=== PATIENT | male | born 1990 | race Caucasian/White ===

== ENCOUNTER 2016-10-24 07:38 | Emergency (ER) | payer BC ==
[2016-10-24 07:47] VITALS: BP 137/92
--- NOTE | 2016-10-24 08:15 | UC ---
Respiratory Complaint HPI - HPI Summary HPI Summary: 2 DAYS OF COUGH, CONGESTION, GONZALES. ST WHENHE COUGHS. FEVER YESTERDAY 102. LAST DOSE IBUPROFEN 12 HOURS AGO. NO N/V/D. - History of Current Complaint Chief Complaint: UCRespiratory Stated Complaint: COUGH Time Seen by Provider: 10/24/16 08:09 Hx Obtained From: Patient Onset/Duration: Gradual Onset, Lasting Days, Still Present Timing: Constant Severity Initially: Moderate Severity Currently: Moderate Pain Intensity: 0 Pain Scale Used: 0-10 Numeric Character: Cough: Nonproductive Aggravating Factors: Nothing Alleviating Factors: Nothing Associated Signs And Symptoms: Positive: Fever, URI, Nasal Congestion. Negative : Dyspnea, Pleuritic Chest Pain, Wheezing, Hemoptysis, Hoarseness - Allergies/Home Medications Allergies/Adverse Reactions: Allergies Allergy/AdvReac Type Severity Reaction Status Date / Time No Known Allergies Allergy Verified 10/24/16 07:41 PMH/Surg Hx/FS Hx/Imm Hx Previously Healthy: Yes - Surgical History Surgical History: Yes Surgery Procedure, Year, and Place: [place] teeth removal 2015 - Family History Known Family History: Positive: Hypertension - Social History Alcohol Use: Weekly Substance Use Type: None Smoking Status (MU): Never Smoked Tobacco - Immunization History Most Recent Influenza Vaccination: 2015/2016 Review of Systems Constitutional: Fever ENT: Sore Throat, Nasal Discharge Respiratory: Cough Cardiovascular: Negative Gastrointestinal: Negative All Other Systems Reviewed And Are Negative: Yes Physical Exam Triage Information Reviewed: Yes Appearance: Well-Appearing, No Pain Distress, Well-Nourished Vital Signs: Initial Vital Signs Temp 99.4 F 10/24/16 07:42 Pulse 100 10/24/16 07:42 Resp 18 10/24/16 07:42 BP 137/92 10/24/16 07:42 Pulse Ox 97 10/24/16 07:42 Vital Signs Reviewed: Yes Eyes: Positive: Conjunctiva Clear ENT: Positive: Hearing grossly normal, Pharynx normal, TMs normal Neck: Positive: Supple, Nontender, No Lymphadenopathy Respiratory Exam: Normal Cardiovascular Exam: Normal Abdomen Description: Positive: Soft Musculoskeletal: Positive: No Edema Neurological: Positive: Alert Psychological: Positive: Age Appropriate Behavior Skin: Negative: rashes UC Diagnostic Evaluation - Laboratory O2 Sat by Pulse Oximetry: 97 Respiratory Course/Dx - Differential Dx/Diagnosis Provider Diagnoses: ACUATE BRONCHITIS - LIKELY VIRAL Discharge - Discharge Plan Condition: Stable Disposition: HOME Prescriptions: guaiFENesin/CODIEN 100MG-10MG* [Robitussin AC 100Mg-10Mg*] 5 - 10 ml PO Q6H PRN #150 ml MDD 40ML PRN Reason: Cough Patient Education Materials: Acute Bronchitis (ED) Referrals: Bk Barker MD [Primary Care Provider] - Additional Instructions: YOU HAVE INFLAMMATION OF YOUR AIRWAYS (BRONCHITIS). THIS IS VERY LIKELY VIRALLY MEDIATED AND ANTIBIOTICS ARE UNLIKELY TO EXPEDITE YOUR RECOVERY. REST, HYDRATE, OTC MEDS NEEDED. SEEK FOLLOW-UP IF YOU ARE NOT IMPROVING EXPECTED OVER THE NEXT WEEK OR SO. CALL THE NUMBER BELOW FOR ASSISTANCE IN ESTABLISHING WITH A PCP An additional resource available to assist in finding the appropriate physician for your health care needs is the [facility] ([facility]). You may contact them by calling [phone].
== END 2016-10-24 08:24 | disposition home or self-care (01) ==
LOC: UCEAST 07:38
DX: J20.9 Acute bronchitis, unspecified (principal)
CPT/HCPCS: 99212; G0463

== ENCOUNTER 2017-07-01 15:52 | Emergency (ER) | payer SELFPAY ==
[2017-07-01 16:14] VITALS: BP 149/81
--- NOTE | 2017-07-01 16:21 | UC ---
Lower Extremity/Ankle HPI - HPI Summary HPI Summary: 26 YEAR OLD MALE PRESENTS WITH RIGHT BIG TOE PAIN SECONDARY TO CRUSH INJURY. - History of Current Complaint Chief Complaint: UCLowerExtremity Stated Complaint: FOOT INJURY Time Seen by Provider: 07/01/17 16:20 Hx Obtained From: Patient Onset/Duration: Sudden Onset Severity Initially: Moderate Severity Currently: Moderate Pain Scale Used: 0-10 Numeric - 8 Aggravating Factor(s): Standing Alleviating Factor(s): Rest - Allergies/Home Medications Allergies/Adverse Reactions: Allergies Allergy/AdvReac Type Severity Reaction Status Date / Time No Known Allergies Allergy Verified 07/01/17 16:14 PMH/Surg Hx/FS Hx/Imm Hx Previously Healthy: Yes - Surgical History Surgical History: Yes Surgery Procedure, Year, and Place: [place] teeth removal 2015 - Family History Known Family History: Positive: Hypertension - Social History Alcohol Use: Occasionally Substance Use Type: None Smoking Status (MU): Never Smoked Tobacco - Immunization History Most Recent Influenza Vaccination: Review of Systems Constitutional: Negative Skin: Negative Eyes: Negative ENT: Negative Respiratory: Negative Cardiovascular: Negative Gastrointestinal: Negative Genitourinary: Negative Motor: Negative Neurovascular: Negative Musculoskeletal: Negative Neurological: Negative Psychological: Negative All Other Systems Reviewed And Are Negative: Yes Physical Exam Triage Information Reviewed: Yes Vital Signs: Initial Vital Signs Temp 36.4 C 07/01/17 16:12 Pulse 87 07/01/17 16:12 Resp 12 07/01/17 16:12 BP 149/81 07/01/17 16:12 Pulse Ox 97 07/01/17 16:12 Vital Signs Reviewed: Yes Eye Exam: Normal ENT Exam: Normal Dental Exam: Normal Neck exam: Normal Neck: Positive: 1 Respiratory Exam: Normal Cardiovascular Exam: Normal Abdominal Exam: Normal Musculoskeletal Exam: Normal Neurological Exam: Normal Psychological Exam: Normal Skin Exam: Normal Lower Extremity Course/Dx - Differential Dx/Diagnosis Provider Diagnoses: RIGHT BIG TOE FRACTURE Discharge - Discharge Plan Condition: Stable Disposition: HOME Prescriptions: Acetaminop/Codeine 30 MG TAB* [Tylenol/Codeine 30 MG TAB*] 1 tab PO Q8H PRN #9 tab MDD 3 PRN Reason: Pain Ibuprofen TAB* [Motrin TAB* 800 MG] 800 mg PO Q6H PRN #30 tab PRN Reason: Pain Patient Education Materials: Toe Fracture (ED) Referrals: Bk Barker MD [Medical Doctor] - Lennox Barrett MD [Medical Doctor] -
--- NOTE | 2017-07-01 16:45 | RAD ---
Indication: Crush injury to RIGHT foot; pain at the metatarsal phalangeal joint and distal first phalanx. Comparison: No relevant prior exams available on the [facility] PACS for comparison. Technique: AP, lateral, and oblique views RIGHT foot. Report: Nondisplaced intra-articular fracture medial base of the first distal phalanx. No additional fracture evident. Normal variant bipartite sesamoid at the medial head of the flexor hallucis brevis. Normal articular alignment and preserved joint spaces. Soft tissue swelling along the medial aspect of the foot from the mid foot through the tip of the great toe. IMPRESSION: Nondisplaced intra-articular fracture medial base first distal phalanx.
== END 2017-07-01 17:10 | disposition home or self-care (01) ==
LOC: UCEAST 15:52
DX: S92.401A Displaced unspecified fracture of right great toe, initial encounter for closed fracture (principal); W20.8XXA Other cause of strike by thrown, projected or falling object, initial encounter
CPT/HCPCS: 99212; G0463

== ENCOUNTER 2018-01-03 15:58 | Emergency (ER) | payer BC ==
[2018-01-03 16:14] VITALS: BP 122/78
--- NOTE | 2018-01-03 16:27 | UC ---
Throat Pain/Nasal Elliot HPI - HPI Summary HPI Summary: Sensation of pain/soreness in lower throat on inspiration only starting about 3 days ago. Denies SOB, choking, wheezing, or pain with swallowing. No fever or runny nose. Has never had a symptom like this before. Does get very occasional heartburn, but no symptoms recently. - History of Current Complaint Chief Complaint: UCRespiratory Stated Complaint: PAIN IN THROAT W/ INHALATION Time Seen by Provider: 01/03/18 16:09 Hx Obtained From: Patient Onset/Duration: Gradual Onset, Lasting Days Severity: Mild Pain Intensity: 4 Cough: Other: - dry, occasional Associated Signs & Symptoms: Negative: Dysphagia, Sinus Discomfort, Nasal Discharge - Allergies/Home Medications Allergies/Adverse Reactions: Allergies Allergy/AdvReac Type Severity Reaction Status Date / Time No Known Allergies Allergy Verified 01/03/18 16:07 Home Medications: Home Medications Guaifenesin/Pseudoephedrne HCl [Mucinex D ER Tablet] 1 each PO Q8HR 01/03/18 [ History Confirmed 01/03/18] PMH/Surg Hx/FS Hx/Imm Hx Previously Healthy: Yes - Surgical History Surgical History: Yes Surgery Procedure, Year, and Place: [place] teeth removal 2015 - Family History Known Family History: Positive: Hypertension - Social History Occupation: Employed Full-time Lives: With Family Alcohol Use: Weekly Substance Use Type: None Smoking Status (MU): Never Smoked Tobacco - Immunization History Most Recent Influenza Vaccination: 2015/2016 Review of Systems Constitutional: Negative Skin: Negative Eyes: Negative ENT: Sore Throat Respiratory: Negative Cardiovascular: Negative Gastrointestinal: Negative Genitourinary: Negative Motor: Negative Neurovascular: Negative Musculoskeletal: Negative Neurological: Negative Psychological: Negative Is Patient Immunocompromised?: No All Other Systems Reviewed And Are Negative: Yes Physical Exam Triage Information Reviewed: Yes Appearance: Well-Appearing, No Pain Distress, Well-Nourished Vital Signs: Initial Vital Signs Temp 98.0 F 01/03/18 16:06 Pulse 90 01/03/18 16:06 Resp 18 01/03/18 16:06 BP 122/78 01/03/18 16:06 Pulse Ox 98 01/03/18 16:06 Vital Signs Reviewed: Yes Eye Exam: Normal Eyes: Positive: Conjunctiva Clear ENT Exam: Normal ENT: Positive: Normal ENT inspection, Hearing grossly normal, Pharynx normal, TMs normal, Uvula midline, Other - no swelling noted in oropharynx Dental Exam: Normal Neck exam: Other - notes discomfort near thyroid Neck: Positive: Supple, Nontender Respiratory Exam: Normal Respiratory: Positive: Chest non-tender, Lungs clear, Normal breath sounds, No respiratory distress, No accessory muscle use Cardiovascular: Positive: No Murmur, Other: - rhythm highly irregular Musculoskeletal Exam: Normal Musculoskeletal: Positive: Strength Intact, ROM Intact Neurological: Positive: Alert, Muscle Tone Normal Psychological Exam: Normal Skin Exam: Normal Diagnostics - EKG Cardiac Rate: Other Rate - Irregular from 50s - 120s Cardiac Rhythm: AFib: New Throat Pain/Nasal Course/Dx - Differential Dx/Diagnosis Provider Diagnoses: atrial fibrillation - Physician Notification/Consults Discussed Patient Care With: Jackson Maurice Time Discussed With Above Provider: 16:40 Instructed by Provider To: MD Will See In ED Discharge - Sign-Out/Discharge Documenting (check all that apply): Discharge - Discharge Plan Condition: Stable Disposition: TRANS HIGHER LVL OF CARE FAC Referrals: No Primary Care Phys,NOPCP [Primary Care Provider] - - Billing Disposition and Condition Condition: STABLE Disposition: EMTALA
== END 2018-01-03 16:54 | disposition short-term general hospital (02) ==
LOC: UCEAST 15:58
DX: I48.91 Unspecified atrial fibrillation (principal)
CPT/HCPCS: 93005; 99213; G0463

== ENCOUNTER 2018-01-03 17:05 | Observation (INO) | payer BC ==
[2018-01-03] MEDS ORDERED: NS 0.9% 1000 ML* 1,000 ML IV ONE ×2 (17:13→18:16)
[2018-01-03] MEDS ORDERED: Diltiazem IV* 5 MG/ML 5 ML VIAL (for loading dose/IV Push) (25 MG) IV SLOW PU ONE (17:14)
[2018-01-03] MEDS ORDERED: Diltiazem IV VIAL* 125 MG/25 ML VIAL ONE (17:18)
[2018-01-03] MEDS ORDERED: Diltiazem DRIP* 100 MG/100 ML ADDV.BAG IVPB ONE (17:21)
[2018-01-03 17:29] LABS: Hematocrit 47 % (42-52); Hemoglobin 16.3 g/dl (14.0-18.0); Mean Corpuscular HGB Conc 35 g/dl (31-36); Mean Corpuscular Hemoglobin 29 pg (27-31); Mean Corpuscular Volume 82 fL (80-94); Mean Platelet Volume 9.5 um3 (7.4-10.4); Platelet Count 269 10^3/ul (150-450); Red Blood Count 5.68 10^6/ul (4.0-5.4); Red Cell Distribution Width 13 % (10.5-15); White Blood Count 10.8 10^3/ul (3.5-10.8)
[2018-01-03 17:35] LABS: ABS Basophils 0 10^3/ul (0-0.2); ABS Eosinophils 0.1 10^3/ul (0-0.6); ABS Lymphocytes 2.8 10^3/ul (1.0-4.8); ABS Monocytes 0.8 10^3/ul (0-0.8); ABS Neutrophils 6.7 10^3/ul (1.5-7.7); ABS Nucleated RBC 0 10^3/ul; Eosinophil % 0.8 % (0-6); Lymphocyte % 27.1 % (25-47); Nucleated Red Blood Cells % 0.1
[2018-01-03 17:39] LABS: INR 0.94 (0.77-1.02)
[2018-01-03 17:47] LABS: EGFR Non-African American 69.3 (>60)
--- NOTE | 2018-01-03 17:51 | RAD ---
Indication: Tachycardia. Single frontal view of the chest performed at 1727 hours was reviewed. No prior study is available for comparison. No mediastinal shift is noted. Heart is of normal size and configuration. Lung camarena appear clear. IMPRESSION: NO ACTIVE CARDIOPULMONARY DISEASE IS NOTED.
[2018-01-03 18:32] LABS: Urine Appearance Clear; Urine Blood Negative (Negative); Urine Color Colorless; Urine Ketones Negative (Negative); Urine Protein Negative (Negative); Urine Specific Gravity 1.004 (1.010-1.030); Urine Urobilinogen Negative (Negative)
--- NOTE | 2018-01-03 18:52 | ED ---
Linda Glasgow Thomas, scribed for Jackson Maurice MD on 01/03/18 at 1722 . Palpitations / Dysrhythmia - HPI Summary HPI Summary: The patient is a 27 year old male brought in by ambulance from urgent care. He did not feel right today, prompting an urgent care visit. For the last three days, the patient has had pressure in my wind pipe. This pressure is aggravating by bending over. The pressure is alleviated by lying on his left side. He was noted to be in new-onset A-Fib on an EKG obtained at urgent care. He denies shortness of breath and calf pain. - History of Current Complaint Chief Complaint: EDDysrhythmPalp Time Seen by Provider: 01/03/18 17:13 Hx Obtained From: Patient Onset/Duration: Lasting Days - 3, Still Present Timing: Constant Severity Currently: Moderate Character: Fast Aggravating: Other - Bending over makes pressure worse Alleviating: Other - Lying on left side makes pressure better Associated Signs & Symptoms: Negative - SOB, calf pain - Allergy/Home Medications Allergies/Adverse Reactions: Allergies Allergy/AdvReac Type Severity Reaction Status Date / Time No Known Allergies Allergy Verified 01/03/18 16:07 PMH/Surg Hx/FS Hx/Imm Hx Endocrine/Hematology History: Denies: Hx Diabetes Cardiovascular History: Denies: Hx Atrial Fibrillation - Surgical History Surgery Procedure, Year, and Place: [place] teeth removal 2016 Infectious Disease History: No Infectious Disease History: Denies: History Other Infectious Disease, Traveled Outside the [place] in Last 30 Days - Family History Known Family History: Positive: Hypertension - Social History Alcohol Use: Weekly Substance Use Type: Reports: None Smoking Status (MU): Never Smoked Tobacco Review of Systems Negative: Fever Positive: Other - Chest pressure Negative: Shortness Of Breath Negative: Other - calf pain All Other Systems Reviewed And Are Negative: Yes Physical Exam - Summary Physical Exam Summary: General: well-appearing, no pain distress Skin: warm, color reflects adequate perfusion, dry Head: normal Eyes: EOMI, KATHERIN ENT: normal Neck: supple, nontender Respiratory: CTA, breath sounds present Cardiovascular: Tachycardia. Abdomen: soft, nontender Bowel: present Musculoskeletal: normal, strength/ROM intact Neurological: normal, sensory/motor intact, A&O x3 Psychological: affect/mood appropriate Triage Information Reviewed: Yes Vital Signs On Initial Exam: Initial Vitals Temp Pulse Resp BP Pulse Ox 99.1 F 176 16 146/67 99 01/03/18 17:07 01/03/18 17:07 01/03/18 17:07 01/03/18 17:07 01/03/18 17:07 Vital Signs Reviewed: Yes Diagnostics - Vital Signs Vital Signs Temp Pulse Resp BP Pulse Ox 01/03/18 17:07 99.1 F 176 16 146/67 99 - Laboratory Lab Results: Lab Results 01/03/18 01/03/18 01/03/18 Range/Units 16:45 16:45 16:45 WBC (3.5-10.8) 10^3/ul RBC (4.0-5.4) 10^6/ul Hgb (14.0-18.0) g/dl Hct (42-52) % MCV (80-94) fL MCH (27-31) pg MCHC (31-36) g/dl RDW (10.5-15) % Plt Count (150-450) 10^3/ul MPV (7.4-10.4) um3 Neut % (Auto) (38-83) % Lymph % (Auto) (25-47) % [place] % (Auto) (0-7) % Eos % (Auto) (0-6) % Baso % (Auto) (0-2) % Absolute Neuts (auto) (1.5-7.7) 10^3/ul Absolute Lymphs (auto) (1.0-4.8) 10^3/ul Absolute Monos (auto) (0-0.8) 10^3/ul Absolute Eos (auto) (0-0.6) 10^3/ul Absolute Basos (auto) (0-0.2) 10^3/ul Absolute Nucleated RBC 10^3/ul Nucleated RBC % INR (Anticoag Therapy) 0.94 (0.77-1.02) APTT 31.4 (26.0-36.3) seconds D-Dimer, Quantitative < 200 (Less Than 230) ng/mL Sodium 142 (139-145) mmol/L Potassium 3.7 (3.5-5.0) mmol/L Chloride 103 (101-111) mmol/L Carbon Dioxide 28 (22-32) mmol/L Anion Gap 11 (2-11) mmol/L BUN 13 (6-24) mg/dL Creatinine 1.25 H (0.67-1.17) mg/dL Est GFR ( Amer) 89.1 (>60) Est GFR (Non-Af Amer) 69.3 (>60) BUN/Creatinine Ratio 10.4 (8-20) Glucose 78 (70-100) mg/dL Lactic Acid (0.5-2.0) mmol/L Calcium 9.7 (8.6-10.3) mg/dL Magnesium 2.0 (1.9-2.7) mg/dL Total Bilirubin 0.60 (0.2-1.0) mg/dL AST 19 (13-39) U/L ALT 19 (7-52) U/L Alkaline Phosphatase 66 (34-104) U/L Total Creatine Kinase 75 (10-223) U/L CK-MB (CK-2) Pending Troponin I 0.00 (<0.04) ng/mL C-Reactive Protein 13.36 H (< 5.00) mg/L B-Natriuretic Peptide 15 ( - 100) pg/mL Total Protein 8.0 (6.4-8.9) g/dL Albumin 4.7 (3.2-5.2) g/dL Globulin 3.3 (2-4) g/dL Albumin/Globulin Ratio 1.4 (1-3) Lipase 30 (11.0-82.0) U/L TSH 1.27 (0.34-5.60) mcIU/mL Urine Color Urine Appearance Urine pH (5-9) Ur Specific [place] (1.010-1.030) Urine Protein (Negative) Urine Ketones (Negative) Urine Blood (Negative) Urine Nitrate (Negative) Urine Bilirubin (Negative) Urine Urobilinogen (Negative) Ur Leukocyte Esterase (Negative) Urine Glucose (Negative) Acetaminophen < 15 mcg/mL 01/03/18 01/03/18 01/03/18 Range/Units 16:45 16:45 18:20 WBC 10.8 (3.5-10.8) 10^3/ul RBC 5.68 H (4.0-5.4) 10^6/ul Hgb 16.3 (14.0-18.0) g/dl Hct 47 (42-52) % MCV 82 (80-94) fL MCH 29 (27-31) pg MCHC 35 (31-36) g/dl RDW 13 (10.5-15) % Plt Count 269 (150-450) 10^3/ul MPV 9.5 (7.4-10.4) um3 Neut % (Auto) 64.1 (38-83) % Lymph % (Auto) 27.1 (25-47) % [place] % (Auto) 7.7 H (0-7) % Eos % (Auto) 0.8 (0-6) % Baso % (Auto) 0.3 (0-2) % Absolute Neuts (auto) 6.7 (1.5-7.7) 10^3/ul Absolute Lymphs (auto) 2.8 (1.0-4.8) 10^3/ul Absolute Monos (auto) 0.8 (0-0.8) 10^3/ul Absolute Eos (auto) 0.1 (0-0.6) 10^3/ul Absolute Basos (auto) 0 (0-0.2) 10^3/ul Absolute Nucleated RBC 0 10^3/ul Nucleated RBC % 0.1 INR (Anticoag Therapy) (0.77-1.02) APTT (26.0-36.3) seconds D-Dimer, Quantitative (Less Than 230) ng/mL Sodium (139-145) mmol/L Potassium (3.5-5.0) mmol/L Chloride (101-111) mmol/L Carbon Dioxide (22-32) mmol/L Anion Gap (2-11) mmol/L BUN (6-24) mg/dL Creatinine (0.67-1.17) mg/dL Est GFR ( Amer) (>60) Est GFR (Non-Af Amer) (>60) BUN/Creatinine Ratio (8-20) Glucose (70-100) mg/dL Lactic Acid 1.0 (0.5-2.0) mmol/L Calcium (8.6-10.3) mg/dL Magnesium (1.9-2.7) mg/dL Total Bilirubin (0.2-1.0) mg/dL AST (13-39) U/L ALT (7-52) U/L Alkaline Phosphatase (34-104) U/L Total Creatine Kinase (10-223) U/L CK-MB (CK-2) Troponin I (<0.04) ng/mL C-Reactive Protein (< 5.00) mg/L B-Natriuretic Peptide ( - 100) pg/mL Total Protein (6.4-8.9) g/dL Albumin (3.2-5.2) g/dL Globulin (2-4) g/dL Albumin/Globulin Ratio (1-3) Lipase (11.0-82.0) U/L TSH (0.34-5.60) mcIU/mL Urine Color Colorless Urine Appearance Clear Urine pH 7.0 (5-9) Ur Specific [place] 1.004 L (1.010-1.030) Urine Protein Negative (Negative) Urine Ketones Negative (Negative) Urine Blood Negative (Negative) Urine Nitrate Negative (Negative) Urine Bilirubin Negative (Negative) Urine Urobilinogen Negative (Negative) Ur Leukocyte Esterase Negative (Negative) Urine Glucose Negative (Negative) Acetaminophen mcg/mL Result Diagrams: 01/03/18 16:45 01/03/18 16:45 Lab Statement: Any lab studies that have been ordered have been reviewed, and results considered in the medical decision making process. - Radiology CXR Xray Interpretation: No Acute Changes - Impression: No active cardiopulmonary disease. Dr. Maurice has reviewed this report. Radiology Interpretation Completed By: Radiologist - EKG 17:10 Cardiac Rate: Tachycardia EKG Interpretation: Rapid A-Fib at 163 BPM. Course/Dx - Course Course Of Treatment: ADMIT HOSPITALIST. - Diagnoses Provider Diagnoses: New onset a-fib - Physician Notifications Discussed Care Of Patient With: Asmita Nguyen Time Discussed With Above Provider: 18:15 Instructed by Provider To: Admit As Inpatient - Critical Care Time Critical Care Time: 30-74 min Discharge - Sign-Out/Discharge Documenting (check all that apply): Discharge - Patient admitted by Dr. Nguyen - Discharge Plan Condition: Stable Disposition: ADMITTED TO [facility] Referrals: No Primary Care Phys,NOPCP [Primary Care Provider] - - Billing Disposition and Condition Condition: STABLE Disposition: [facility]OSP-[facility] The documentation as recorded by the Linda torres Thomas accurately reflects the service I personally performed and the decisions made by , Jackson Maurice MD.
[2018-01-03] MEDS ORDERED: Potassium Chlor TAB* 20 MEQ TAB.ER PO ONE (18:59)
[2018-01-03] MEDS ORDERED: Diltiazem DRIP* 100 MG/100 ML ADDV.BAG IVPB SCH ×2 (19:00→19:14)
[2018-01-03] MEDS ORDERED: Diltiazem IV VIAL* 125 MG/25 ML VIAL IV PUSH ONE (19:00)
[2018-01-03] MEDS ORDERED: Acetaminophen TAB* 325 MG PO PRN (19:03)
[2018-01-03] MEDS: Enoxaparin(*) 60 MG/0.6 ML SYR SUBCUT SCH (21:41)
[2018-01-03] MEDS: NS 0.9% 1000 ML* 1,000 ML IV SCH (22:39)
[2018-01-04 07:20] VITALS: BP 111/75
[2018-01-04] MEDS: Enoxaparin(*) 60 MG/0.6 ML SYR SUBCUT SCH (08:09)
[2018-01-04] MEDS: NS 0.9% 1000 ML* 1,000 ML IV SCH (08:09)
--- NOTE | 2018-01-04 09:47 | ECHO ---
Patient: COLLETTE MANCIA [facility] Rec#: [id number] : 1990 Date: 01/04/2018 Age: 27y Height: 187.96 cm / 74.0 in Weight: 113.4 kg / 249.9 lbs Sex: M BSA: 2.39 Room#: 432 Admit Date#: 01/03/2018 Type: Inpatient Referring: Asmita Nguyen DO Reading: Josh Dupree MD End Stapler: Liv Leung RD,RDMS Transthoracic Echocardiogram Indication: AFIB BP: 110/70 HR: 79 Rhythm: NSR Findings History: Previously healthy Technical Comments: The study quality is good. Left Ventricle: The left ventricular chamber size is normal. Mild concentric left ventricular hypertrophy is observed. Global left ventricular wall motion and contractility are within normal limits. There is normal left ventricular systolic function. The estimated ejection fraction is 55-60%. Normal left ventricular diastolic filling is observed. Left Atrium: The left atrial chamber size is normal. Right Ventricle: The right ventricular chamber size and systolic function are within normal limits. Right Atrium: The right atrial cavity size is normal. Aortic Valve: The aortic valve is trileaflet. The leaflets are thin with normal excursion. There is no aortic stenosis or regurgitation present. Mitral Valve: The mitral valve leaflets appear normal. There is no evidence of mitral regurgitation. There is no evidence of mitral stenosis. Tricuspid Valve: The tricuspid valve leaflets are normal. There is trace tricuspid regurgitation. Unable to estimate the right ventricular systolic pressure. Pulmonic Valve: The pulmonic valve appears normal. There is a trace pulmonic regurgitation. Pericardium: There is no significant pericardial effusion. Aorta: The aortic root appears normal. There is no dilatation of the aortic arch. Pulmonary Artery: The main pulmonary artery appears normal. Venous: The inferior vena cava appears normal in size. There is a greater than 50% respiratory change in the inferior vena cava dimension. Summary: There was not any prior study for comparison. Conclusions Global left ventricular wall motion and contractility are within normal limits. There is normal left ventricular systolic function. The estimated ejection fraction is 55-60%. The aortic valve is trileaflet. The leaflets are thin with normal excursion. There is no aortic stenosis or regurgitation present. There is no evidence of mitral regurgitation. There is trace tricuspid regurgitation. There is no significant pericardial effusion. Measurements Name Value Normal Range RVIDd (AP) 2D 2.5 cm (0.9 - 2.6) RVDdMajor (2D) 4.1 cm (2.2 - 4.4) RAd ISD 4CH 5 cm (3.4 - 4.9) RA (A4C)W 3.9 cm (2.9 - 4.6) IVSd (2D) 1.1 cm (0.6 - 1) LVPWd (2D) 1.1 cm (0.6 - 1) LVIDd (2D) 5.4 cm (3.6 - 5.4) LVIDs (2D) 3.5 cm - LV FS (2D) 35 % (25 - 45) Aortic Annulus 2.4 cm (1.4 - 2.6) Ao root diameter (2D) 3.2 cm (2.1 - 3.5) Ascending Ao 2.9 cm (2.1 - 3.4) Aortic arch 3 cm (1.8 - 3.4) LA dimension (AP) 2D 4.1 cm (2.3 - 3.8) LAd ISD 4CH 5 cm (2.9 - 5.3) LA ISD 4CH W 5 cm (2.5 - 4.5) Name Value Normal Range LA ESV SP 4CH (A/L) 67.8 ml - LA ESV SP 2CH (A/L) 39.98 ml - LA ESV BP (A/L) 52.86 ml - LA ESV BP (A/L) index 22 ml/m2 - LA ESV SP 4CH (MOD) 61.34 ml - LA ESV SP 2CH (MOD) 36.54 ml - Name Value Normal Range MV E-wave Vmax 0.6 m/sec - MV deceleration time 224 msec - MV A-wave Vmax 0.4 m/sec - MV E:A ratio 1.5 ratio - LV septal e' Vmax 0.1 m/sec - LV lateral e' Vmax 0.09 m/sec - LV E:e' septal ratio 6 ratio - LV E:e' lateral ratio 7 ratio - Name Value Normal Range AV Vmax 1.2 m/sec - AV VTI 25 cm - AV peak gradient 6 mmHg - AV mean gradient 3.2 mmHg - LVOT Vmax 0.9 m/sec - LVOT VTI 18.5 cm - LVOT peak gradient 3.2 mmHg - LVOT mean gradient 1.9 mmHg - PHIL Vmax 1.2 m/sec - Name Value Normal Range RAP 8 mmHg - IVC diameter 1.6 cm - Name Value Normal Range PV Vmax 0.9 m/sec - PV peak gradient 3.6 mmHg -
[2018-01-04 13:03] LABS: EGFR Non-African American 95.1 (>60)
[2018-01-04] MEDS ORDERED: Rivaroxaban TAB(*) 20 MG TAB PO ONE (14:00)
--- NOTE | 2018-01-04 22:28 | DS ---
CC: Dr. Dupree; Dr. Rubalcava* DISCHARGE SUMMARY: DATE OF ADMISSION: 01/03/18 DATE OF DISCHARGE: 01/04/18 PRIMARY CARE PROVIDER: None. CARDIOLOGISTS: Dr. Dupree and Dr. Rubalcava. DISCHARGE DIAGNOSIS: Atrial fibrillation with rapid ventricular response that converted to normal sinus rhythm, on Cardizem drip. SECONDARY DIAGNOSIS: None. MEDICATIONS AT DISCHARGE: Xarelto 20 mg daily. FOLLOWUP APPOINTMENTS: Our office is currently in the process of arranging a followup appointment with primary care provider. The patient is scheduled with Dr. Jase Rubalcava to see for followup from Cardiology on 01/28/18 at 8:30 a.m. DIET AT DISCHARGE: Regular and no caffeine. LABORATORY DATA AND STUDIES PREFORMED DURING THE HOSPITAL STAY: Included: The patient's CBC was unremarkable. D-dimer was below 200. Sodium was 138, potassium 3.9, chloride 103, carbon dioxide 28, BUN 12, creatinine 0.95 that was obtained on the day of discharge on 01/04/18. The patient's creatinine on admission was 1.25. Urine drug screen was negative. Transthoracic echocardiogram obtained on 01/04/18 showed EF of 55% to 60% with a left ventricular wall motion contractility with limits and functionally benign heart valve apart from trace tricuspid regurgitation. Portable chest x-ray, impression: "No active cardiopulmonary disease is noted. " Please note that the patient's magnesium was 2.0 and TSH was 1.27 at admission. His brain natriuretic peptide was 15. HOSPITALIZATION COURSE: Freddie Vergara is a 27-year-old male, who presented to the hospital complaining of a funny feeling in his throat and feeling like he is short of breath in the base of his neck. The sensation had been ongoing for 4 days at that point. He was noted to be in atrial fibrillation with rapid ventricular response. The patient does not remember any recent stressful events. He had not been sick and feeling unwell. He stated that he had gained approximately 40 pounds and he drinks a lot of caffeinated soda and 2 cups of coffee every morning. He stated that he started snoring a lot in the past year. He denies any significant alcohol use. At this point, his workup in the emergency department showed negative D-dimer. TSH was within normal limits and his electrolytes that were fine. At this point most likely predisposing factor to atrial fibrillation is obstructive sleep apnea, recent weight gain, and caffeine use. We talked with the patient for a while about the modifiable factors. The patient stated that he will use no caffeinated beverages and he will try to lose weight. I spoke with Dr. Dupree, the entertainment musician's on-call, who recommended for the patient to be placed on anticoagulation and to be discharged home with recommendations to follow up with the entertainment musician in the office. The first available appointment was with Dr. Jase Rubalcava and the patient is recommended to see Dr. Jase Rubalcava for followup on 01/28/18 as above mentioned. Until then, the patient is recommended to follow a no caffeine diet. Our office is also arranging for primary care provider to see the patient for a followup. He had not had a primary care provider up to that point. At discharge also after the entertainment musician's recommendation, the patient is going to be placed on anticoagulation with Xarelto. The patient was given 1 month prescription and 1 refill. I suspect he will need to be anticoagulated for more than 1 to 2 months. PHYSICAL EXAMINATION AT DISCHARGE: Blood pressure of 111/75, heart rate of 78 and regular, respiratory rate of 18, oxygen saturation 94% on room air, temperature 97.7. General: The patient is a very pleasant 27-year-old male with a BMI of 32. The patient is in no acute distress. Alert, awake, and oriented x3. HEENT: Head: Atraumatic, normocephalic. Eyes: Pupils are equal , reactive to light and accommodation. Oropharynx clear. Mucosa moist. Neck: Supple. No JVD. No bruits bilaterally. Cardiovascular: Regular rate and rhythm. No murmur. Respiratory: Clear to auscultation bilaterally. Abdomen: Soft, nontender. Bowel sounds are present in all 4 quadrants. Extremities: There is no edema. Pulses +2 bilaterally. No clubbing or cyanosis. On neuro evaluation, speech clear. Cranial nerves II through XII grossly intact. Motor strength is 5/5 bilaterally. Please note that the patient is converted to a sinus rhythm, on Cardizem drip while hospitalized. This is a short summary of the patient's hospitalization. Please refer to further medical records for details. [id number] #: [id number] [facility]
== END 2018-01-04 14:39 | disposition home or self-care (01) ==
LOC: ED 17:05 → MEDTELE 18:59
PROVIDERS: ADMIT Hospitalist; ATTEND Internal Medicine
DX: I48.91 Unspecified atrial fibrillation (principal)
CPT/HCPCS: 36415; 71045; 80048; 80053; 80307; 80329; 81003; 82550; 82553; 83605; 83690; 83735; 83880; 84443; 84484; 85025; 85379; 85610; 85730; 86140; 86617; 86618; 93005; 93306; 96365; 96366; 96372; 99291; A9270-GY; G0378; G0480; J1650

== ENCOUNTER 2019-07-09 10:58 | Emergency (ER) | payer BC ==
[2019-07-09 11:15] VITALS: BP 152/80
--- NOTE | 2019-07-09 11:17 | UC ---
Cardiac HPI - HPI Summary HPI Summary: pt presents to with right upper chest pain. Pt states first noticed yesterday. pain is sharp and worse with deep breath. No SOB. Pt states has had a cold, sore throat, sinus congestion. PT denies significant coughing. Pt states last night took Nyquil and slept well. States notices pain with ROM arms. No analgesia today. Pt with a h/o Afib - states dx 1 year ago with tightness in his throat. Pt states was not sick at the time. With further discussion - pt was pulling stakes out of the ground [employer] reviewed - History of Current Complaint Chief Complaint: UCChestPain Stated Complaint: CHEST DISCOMFORT Time Seen by Provider: 07/09/19 11:12 Hx Obtained From: Patient, Medical Records - reviewed EKG, tele strip from previous A fib Onset/Duration: Gradual Onset, Lasting Days Initial Severity: Moderate Current Severity: Moderate Pain Intensity: 5 - Allergy/Home Medications Allergies/Adverse Reactions: Allergies Allergy/AdvReac Type Severity Reaction Status Date / Time No Known Allergies Allergy Verified 07/09/19 11:15 Home Medications: Home Medications Aspirin 1 tab PO ONCE PRN 07/09/19 [History Confirmed 07/09/19] Dm/PE/Acetaminophen/Doxylamine [Vicks Nyquil Severe Cold-Flu] 1 tab PO ONCE PRN 07/09/19 [History Confirmed 07/09/19] guaiFENesin [Mucinex] 1 tab PO ONCE PRN 07/09/19 [History Confirmed 07/09/19] PMH/Surg Hx/FS Hx/Imm Hx Previously Healthy: Yes Cardiovascular History: Hypertension, Atrial Fibrillation - Surgical History Surgical History: Yes Surgery Procedure, Year, and Place: [place] teeth removal 2016 - Family History Known Family History: Positive: Hypertension, Non-Contributory - Social History Occupation: Employed Full-time Lives: With Family Alcohol Use: Occasionally Substance Use Type: None Smoking Status (MU): Former Smoker - Immunization History Most Recent Influenza Vaccination: Review of Systems All Other Systems Reviewed And Are Negative: Yes Constitutional: Positive: Negative Skin: Positive: Negative ENT: Positive: Sore Throat, Nasal Discharge, Sinus Congestion Cardiovascular: Positive: Chest Pain - right upper anterior chest wall Physical Exam - Summary Physical Exam Summary: Vital Signs Reviewed: Yes A+Ox3, no distress, speaking full easy sentences Eyes: Conjunctiva Clear, KATHERIN. EOM intact and full ENT: Hearing grossly normal TM x 2 clear, turbiantes inflammed, + PND, mmoist, uvula midline, no exudate, no erythema Neck: Positive: Supple Respiratory: Positive: No respiratory distress, No accessory muscle use + CTA throughout no w/r + reproduicble CP with direct palp right upper sternal border. Cardiovascular: RRR nl s1, s2 no m/r CBT <2 sec abd soft + BS nt/nd no guarding, no distension Musculoskeletal Exam: REYES x 4 without difficulty Strength Intact, ROM Intact - Pt recreated movement of pulling stakes and pain recurred Neurological: Positive: Alert, + sensation throughout Psychological: Positive: Normal Response To horologist Skin: Positive: no rash, no ecchymosis Triage Information Reviewed: Yes Vital Signs: Initial Vital Signs Temp 98.2 F 07/09/19 11:07 Pulse 85 07/09/19 11:07 Resp 18 07/09/19 11:07 BP 152/80 07/09/19 11:07 Pulse Ox 99 07/09/19 11:07 Diagnostics - Radiology No standard instances Radiology Interpretation Completed By: Radiologist - Patient Name: COLLETTE MANCIA Medical Record#: [id number] Ordering Physician: Chelsi Hanson MD Acct.#: [id number] : 1990 Age: 28 Sex: M Location: [facility] Exam Date: 07/09/19 1152 ADM Status: PRE ER Order Information: CHEST PA & LAT 2 VWS Accession Number: [id number] CPT: 32329 INDICATION: Right anterior upper chest pain. COMPARISON: Comparison is made with a prior chest x-ray study from January 03, 2018. TECHNIQUE: Dual-energy PA and lateral views of the chest were obtained. FINDINGS: The heart is within normal limits in size. Mediastinal and hilar contours appear within normal limits. The lungs are clear. No pleural effusion or pneumothorax is seen. IMPRESSION: NO EVIDENCE FOR ACTIVE CARDIOPULMONARY DISEASE. <Electronically signed by Galdino Worrell MD in OV> 07/09/19 1240 Dictated By: Galdino Worrell MD Dictated Date/Time: 1239 Transcribed Date/Time: 07/09/19 1239 Copy to: CC:Chelsi Hanson MD; Yves Bhandari PA-C Imaging - [facility] Imaging - [facility] Imaging - [facility] [address] [place], [place] [id number] [place] [id number] [place] [id number] ph ([phone]) ph ([phone]) ph ([phone]) This report is only to be considered final once signed by the Provider(s) as displayed in the "<Electronically Signed by >" field (s). Absence of a signature indicates the report is in a draft status and still needs to be finalized. In the event this document was created by someone other than the signing Provider, the individual initiating the document will be listed in the "Entered by:" or "Dictated by:" camarena. 1 of 1 - EKG Cardiac Rate: NL Cardiac Rhythm: Sinus: Normal Ectopy: None Re-Evaluation - Re-Evaluation First Eval Comment: reviewed strep and cxr with pt. recommend heat, stretch. motrin/ apap. deep breaths. strict return precautions. pt comfortable and in agreement with plan - Assessment/Plan Course Of Treatment: Pt presents to with right side anterior chest pain. Pt states feels mostly with deep breath. Pt with mild URI sx. Pt concerned because 1 year ago had rapid afib review of ekg reassuring for NSR VSS - increased bp - history of same pt with mild sinus congesiton and PND. PT with reproducible chest wall pain aling right superior sternal border pt re-created moveent of activity last thur with recreation of pain will check rapid strep cxr pt declined analgesia - Clinical Impression Provider Diagnosis: Costochondritis Discharge ED - Sign-Out/Discharge Documenting (check all that apply): Patient Departure All imaging exams completed and their final reports reviewed: Yes - Discharge Plan Condition: Stable Disposition: HOME Patient Education Materials: Costochondritis (ED) Referrals: Yves Bhandari [Primary Care Provider] - Additional Instructions: Okay to alternate ibuprofen (Advil, Motrin) and Tylenol (acetaminophen) every 3 hours for pain or fever. Take with food. Do NOT take for more than 4-5 days. Okay to apply heat to your area of discomfort Slow, deep breaths frequently are important Avoid further trauma to the area Contact your doctor on Thursday to schedule a follow-up appointment this week. If you have increased pain, shortness of breath, fever, difficulty swallowing or any other concerns it is recommended you go to the emergency department for further evaluation and treatment - Billing Disposition and Condition Condition: STABLE Disposition: Home
== END 2019-07-09 12:54 | disposition home or self-care (01) ==
LOC: UCEAST 10:58
DX: M94.0 Chondrocostal junction syndrome [Tietze] (principal); I10 Essential (primary) hypertension; I48.91 Unspecified atrial fibrillation; Z87.891 Personal history of nicotine dependence
CPT/HCPCS: 71046; 87651; 93005; 99211; G0463